=== PATIENT | male | born 1955 | race Caucasian/White ===

== ENCOUNTER 2018-11-27 08:46 | Emergency (ER) | payer OTHER ==
[~2018-11-27] VITALS: Ht 162.6 cm; Wt 77.0 kg
[2018-11-27 08:51] VITALS: Ht 162.6 cm; Wt 77.0 kg
[2018-11-27] MEDS ORDERED: KETOROLAC 15 MG INJ IV STA (09:14)
[2018-11-27] MEDS ORDERED: BELLADONNA/PHENOBARBITAL TAB PO STA (09:14)
[2018-11-27] MEDS ORDERED: LACTATED RINGER'S 1,000 ML IV STA (09:14)
[2018-11-27] MEDS ORDERED: LIDOCAINE/MYLANTA 40 ML BTL PO STA (09:14)
--- NOTE | 2018-11-27 09:17 | ERD ---
ER Documentation Chief Complaint Chief Complaint left lower quadrant pain HPI 63-year-old man complains of constant daily left lower prior abdominal pain x1 month. He states he went to all of you a few weeks ago and was diagnosed with constipation and denies recent CT imaging. Patient denies weight loss, no fevers or chills, no chest pain or shortness of breath, no dysuria, no headache or blurry vision, no vomiting or diarrhea ROS All systems reviewed and are negative except as per history of present illness. PMhx/Soc History of Surgery: No Anesthesia Reaction: No Hx Neurological Disorder: No Hx Cardiac Disorders: No Hx Psychiatric Problems: No Hx Miscellaneous Medical Probl: No Hx Alcohol Use: Yes Hx Substance Use: No Hx Tobacco Use: No Smoking Status: Never smoker FmHx Family History: No diabetes Physical Exam Vitals Vital Signs Date Temp Pulse Resp B/P (MAP) Pulse Ox O2 O2 Flow FiO2 Time Delivery Rate 11/27/18 99.5 106 20 140/68 98 Room Air 09:06 (92) 11/27/18 99.5 106 20 140/68 98 08:51 (92) Physical Exam GENERAL: Well-developed, well-nourished, well-hydrated, in no apparent distress, looks nontoxic in appearance HEENT: Moist mucous membranes, pink conjunctiva, no cervical spine tenderness or step-off deformities, no goiter, no jaundice or icterus, extraocular movements intact without pain. No submandibular induration, and no pharyngeal erythema NEURO: Alert and oriented 3, cranial nerves II through XII intact bilaterally, pupils equal round reactive to light, no focal deficits or facial asymmetry, sensation intact distally Strength 5/5 in upper and lower extremities bilaterally CARDIAC: Regular rate and rhythm, no murmurs rubs or gallops LUNGS: Clear bilaterally no wheezing crackles or stridor ABDOMEN: Soft nontender, no guarding, no rigidity, no rebound, no psoas sign no obturator sign. Normoactive bowel sounds SKIN: Warm and dry to touch, no abrasions, contusions, or hematomas, no lacerations, no ecchymosis, no target lesions, and without ulcers EXTREMITIES: No clubbing cyanosis or edema, calves are bilaterally symmetrical, no Homans sign, no popliteal cord sign. Distal pulses equal and bilateral PSYCH: Normal affect without agitation or irritability Procedures/MDM IV line was established patient was placed on monitor tech rhythm strip revealed a sinus rhythm at about 80 bpm with upright P and T waves. Patient was afebrile I administered 1 L normal saline IV, Toradol 15 mg IV, GI cocktail p.o., Zofran 4 mg IV Departure Diagnosis: Primary Impression: Abdominal pain Abdominal location: left lower quadrant Qualified Codes: R10.32 - Left lower quadrant pain Condition: Good CAMERON WHYTE MD November 27, 2018 09:16
[2018-11-27] MEDS ORDERED: SENN-99 PO (10:17)
[2018-11-27] MEDS ORDERED: FINA5TAB4 PO (10:17)
[2018-11-27] MEDS ORDERED: TAMS-14 PO (10:17)
[2018-11-27] MEDS ORDERED: POLY17PO28 PO (10:18)
[2018-11-27] MEDS ORDERED: METR500T PO (10:20)
[2018-11-27] MEDS ORDERED: IBUP-1542 PO (10:20)
[2018-11-27] MEDS ORDERED: AMOX1TAB10 PO (10:20)
[2018-11-27] MEDS ORDERED: metroNIDAZOLE 500 MG TAB PO ONE (10:30)
[2018-11-27] MEDS ORDERED: AMOXICILLIN/CLAV 875 MG TAB PO ONE (10:30)
[2018-11-27 11:01] VITALS: BP 118/79; PULSE 69; RESP 18
== END 2018-11-27 11:32 | disposition home or self-care (01) ==
LOC: E/R 08:46
DX: R10.32 Left lower quadrant pain (principal)
CPT/HCPCS: 36415; 74176; 80053; 83690; 85025; 85610; 85730; 96374; J1885; J7120; Z7502; Z7610

== ENCOUNTER 2018-12-10 08:58 | Emergency (ER) | payer OTHER ==
[~2018-12-10] VITALS: Wt 90.0 kg
[~2018-12-10 08:58] MED LIST: AMOX1TAB10 PO; FINA5TAB4 PO; IBUP-1542 PO; METR500T PO; POLY17PO28 PO; SENN-99 PO; TAMS-14 PO
[2018-12-10 10:56] VITALS: BP 126/78; PULSE 74; RESP 18
--- NOTE | 2018-12-10 12:26 | ERD ---
ER Documentation Chief Complaint Chief Complaint LLQ ABD PAIN FOR THE PAST FEW DAYS. HERE FOR FOLLOW UP NO DISTRESS HPI Patient is a 63-year-old male with no medical problems who presents for abdominal pain recheck. The patient has no fevers. He feels better. He was recently seen and had laboratory studies and a CT scan was diagnosed with diverticulitis. He was given a prescription for Augmentin and Flagyl and finished a 10-day course. He just came back in because they told him to return for a recheck. Upon review of old medical record the patient one previous visit on November 27. He does have a primary doctor. ROS All systems reviewed and are negative except as per history of present illness. Medications Home Meds Active Scripts Ibuprofen* (Motrin*) 600 Mg Tab, 600 MG PO Q8 PRN for PAIN AND/OR INFLAMMATION, #30 TAB Prov:CAMERON WHYTE MD 11/27/18 Metronidazole* (Flagyl*) 500 Mg Tablet, 500 MG PO TID for 10 Days, TAB Prov:CAMERON WHYTE MD 11/27/18 Amoxicillin/Potassium Clav (Amox-Clav 875-125 mg Tablet) 875-125 mg Tab, 1 TAB PO BID for 10 Days, #20 TAB Prov:CAMERON WHYTE MD 11/27/18 Reported Medications Polyethylene Glycol* (Polyethylene Glycol*) 17 Gm Powd.pack, 17 GM PO DAILY, #30 PACKET 11/27/18 Finasteride* (Finasteride*) 5 Mg Tablet, 5 MG PO DAILY, TAB 11/27/18 Tamsulosin Hcl* (Flomax*) 0.4 Mg Cap.er.24h, 0.4 MG PO HS, CAP 11/27/18 Sennosides (Tuyet-Brynn) 8.6 Mg Tablet, 8.6 MG PO BID, TAB 11/27/18 Allergies Allergies: Coded Allergies: No Known Allergy (Unverified , 11/27/18) PMhx/Soc History of Surgery: No Anesthesia Reaction: No Hx Neurological Disorder: No Hx Cardiac Disorders: No Hx Psychiatric Problems: No Hx Miscellaneous Medical Probl: No Hx Alcohol Use: Yes Hx Substance Use: No Hx Tobacco Use: No FmHx Family History: No diabetes Physical Exam Vitals Vital Signs Date Temp Pulse Resp B/P (MAP) Pulse Ox O2 O2 Flow FiO2 Time Delivery Rate 12/10/18 98.4 83 18 134/82 98 09:00 (99) Physical Exam Const: No acute distress Head: Atraumatic Eyes: Normal Conjunctiva ENT: Normal External Ears, Nose and Mouth. Neck: Full range of motion. No meningismus. Resp: Clear to auscultation bilaterally Cardio: Regular rate and rhythm, no murmurs Abd: Soft, non tender, non distended. Normal bowel sounds Skin: No petechiae or rashes Back: No midline or flank tenderness Ext: No cyanosis, or edema Neur: Awake and alert Psych: Normal Mood and Affect Procedures/MDM Patient is a 63-year-old male presents with abdominal pain recheck. The patient has no complaints of abdominal pain and says that he is feeling better. The patient does not require further work-up at this time. It appears that his diverticulitis is improved with antibiotic treatment. The patient will be discharged and can follow-up with the primary doctor within 1 week as needed. The patient can return for any worsening symptoms. Departure Diagnosis: Primary Impression: Abdominal pain Abdominal location: unspecified location Qualified Codes: R10.9 - Uns pecified abdominal pain Condition: Fair Patient Instructions: Abdominal Pain Referrals: Your doctor Additional Instructions: Llame al doctor nomlilly bailey (Referral Sources) MAANA y alicja hiren JIGNESH PARA DENTRO DE HIREN SEMANA. Dgale a la secretaria que nosotros le instruimos hacer esta jignesh.Avise o llame si marks condicin se empeora antes de la jignesh. HEATHER ARMSTRONG MD Dec 10, 2018 12:26
== END 2018-12-10 10:56 | disposition home or self-care (01) ==
LOC: E/R 08:58
DX: R10.32 Left lower quadrant pain (principal)
CPT/HCPCS: 99282